=== PATIENT | female | born 1980 | race Caucasian/White ===

== ENCOUNTER 2017-12-01 23:37 | Emergency (ER) | payer MEDICAID ==
--- NOTE | 2017-12-01 23:59 | NUR ---
CALLED PT IN [place], NO RESPONSE
--- NOTE | 2017-12-02 00:19 | NUR ---
INFORMED BY ADMITTING "PT LEFT AND DIDNT COME BACK"
== END 2017-12-02 00:20 | disposition left against medical advice (07) ==
LOC: ER 23:43
DX: Z53.21 Procedure and treatment not carried out due to patient leaving prior to being seen by health care provider (principal)

== ENCOUNTER 2017-12-02 01:29 | Emergency (ER) | payer MEDICAID, OTHER ==
--- NOTE | 2017-12-02 02:00 | NUR ---
NO ANSWER WHEN CALLED.
--- NOTE | 2017-12-02 02:42 | NUR ---
NOT IN [facility] AGAIN
== END 2017-12-02 02:45 | disposition left against medical advice (07) ==
LOC: ER 01:29
DX: Z53.21 Procedure and treatment not carried out due to patient leaving prior to being seen by health care provider (principal)